=== PATIENT | female | born 1995 | race Caucasian/White ===

== ENCOUNTER 2024-04-01 10:25 | Emergency (ER) | payer BC, SELFPAY ==
[2024-04-01 10:27] VITALS: BP 133/92; PULSE 92; TEMP 36.6; O2SAT 100; BMI 41.3
--- NOTE | 2024-04-01 11:15 | ED.SKABFB1 ---
HPI - Skin/Abscess/Foreign Bdy General Chief complaint: Skin/Abscess/Foreign Body Stated complaint: LUMP ON RIGHT SIDE OF FACE Time Seen by Provider: 04/01/24 10:50 Source: patient Mode of arrival: walk-in History of Present Illness HPI narrative: Patient is here with swelling and tenderness over the right forehead area. 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 She does not have a cough or moist immune system that she is aware of with anything such as hepatitis AIDS diabetes or alcoholism. She is not running a fever. She is not currently taking any antibiotics. She noticed a little bit of drainage from the area that was pustular last night. Does not have a headache or pain in her neck. Related Data Home Medications ?Medication ?Instructions ?Recorded ?Confirmed No Known Home Medications 04/01/24 04/01/24 Allergies Allergy/AdvReac Type Severity Reaction Status Date / Time No Known Drug Allergies Allergy Verified 04/01/24 10:31 Exam Narrative Exam Narrative: Awake alert pleasant vital signs are stable does not appear ill. Problem focused examination shows a very small area approximately 1 cm in diameter in the right forehead area. The area is already spontaneously draining pustular type material. This area is extremely small. Palpation the area does not disclose severe tenderness there is no lymphangitis or surrounding cellulitis. Cognition mentation and neurological examination are all normal. Constitutional Vital Signs, click to edit/add: Last Vital Signs Temp 98 F 04/01/24 10:27 Pulse 92 H 04/01/24 10:27 Resp 20 04/01/24 10:27 BP 133/92 H 04/01/24 10:27 Pulse Ox 100 04/01/24 10:27 Course Vital Signs Vital signs: Vital Signs Temperature 98 F 04/01/24 10:27 Pulse Rate 92 H 04/01/24 10:27 Respiratory Rate 20 04/01/24 10:27 Blood Pressure 133/92 H 04/01/24 10:27 Pulse Oximetry 100 04/01/24 10:27 Temperature 98 F 04/01/24 10:27 Pulse Rate 92 H 04/01/24 10:27 Respiratory Rate 20 04/01/24 10:27 Blood Pressure 133/92 H 04/01/24 10:27 Pulse Oximetry 100 04/01/24 10:27 MDM - Skin/Abscess/Foreign Bdy MDM Narrative Medical decision making narrative: This patient has no immunocompromising disorders and does have a history of MRSA. It would be prudent to cover this early infection for MRSA and usual skin infections. Warm compresses were advised. Cultures were not indicated as this is a uncomplicated soft tissue infection Discharge Plan Discharge Stand Alone Forms: Portal Instructions Chief Complaint: Skin/Abscess/Foreign Body Clinical Impression: Soft tissue infection Patient Disposition: Home, Self-Care Time of Disposition Decision: 11:17 Prescriptions / Home Meds: No Action No Known Home Medications Print Language: Estonian Additional Instructions: Bactrim/Keflex, return to ER if there is area worsens significantly. Start antibiotics immediately Referrals: Physician,Non-Staff, MD [Primary Care Provider] - 1 week
== END 2024-04-01 11:26 | disposition home or self-care (01) ==
PROVIDERS: Emergency Provider Emergency Medicine Emergency Medical Services
DX: L08.9 Local infection of the skin and subcutaneous tissue, unspecified (principal); Z86.14 Personal history of Methicillin resistant Staphylococcus aureus infection
CPT/HCPCS: 99283